=== PATIENT | female | born 1980 | race Caucasian/White ===

== ENCOUNTER → 2017-07-05 | Day surgery (SDC) | payer OTHER ==
[~2017-07-05] VITALS: Ht 165.1 cm; Wt 86.8 kg
[~2017-07-05] MED LIST: ACETAMINOPHEN 1000 MG/100 ML 100 ML IV ONE; CHLORHEXIDINE GLUCONATE 2 % 1 PACK (2 CLOTHS) TOPICAL PRN; DEXAMETHASONE SOD PHOS 4 MG/ML VIAL IV ONE; KETOROLAC TROMETHAMINE 30 MG/ML (IVP) VIAL IV PUSH ONE; KETOROLAC TROMETHAMINE 30 MG/ML (IVP) VIAL ONE; LACTATED RINGER'S 1000 ML INJ 1,000 ML IV ONE; LACTATED RINGER'S 1000 ML IV PRN; LIDOCAINE HCL 1% PF 5 ML SYRINGE OTHER ONE; METOPROLOL TARTRATE 25 MG TAB PO PRN; MIDAZOLAM HCL 2 MG/2 ML VIAL ONE; MORPHINE SULFATE 4 MG/ML INJ ONE; ONCETAB7 PO; ONDANSETRON HCL 4 MG/2 ML VIAL IV ONE; OXYTOCIN 10 UNIT/ML AMP ONE; PERC5TAB12 PO; POVIDONE IODINE 5% (ANTISEPSIS KIT) 4 APPLICATIONS EACH NARE PRN; PROPOFOL 200 MG/20 ML AMP IV ONE; SODIUM CHLORID 0.9% 500 ML IV PRN; oxyCODONE/ACETAMINOPHEN 5 MG/325 MG TAB PO PRN
[2017-07-05 11:43] LABS: AUTOMATED NEUTROPHIL # 5.7 TH/MM3 (1.8-7.7); BASOPHIL % 0.2 % (0.0-2.0); EOSINOPHIL # 0.3 TH/MM3 (0-0.4); EOSINOPHIL % 2.9 % (0.0-4.0); HEMATOCRIT 35.7 % (35.0-46.0); HEMOGLOBIN 12.4 GM/DL (11.6-15.3); LYMPH % 28.5 % (9.0-44.0); LYMPHOCYTE # 2.6 TH/MM3 (1.0-4.8); MEAN CELL VOLUME 97.1 FL (80.0-100.0); MEAN CORPUSCULAR HEMOGLOBIN 33.9 PG (27.0-34.0); MEAN CORPUSCULAR HGB CONC 34.9 % (32.0-36.0); MEAN PLATELET VOLUME 7.4 FL (7.0-11.0); MONO % 6.2 % (0.0-8.0); MONOCYTE # 0.6 TH/MM3 (0-0.9); NEUT % 62.2 % (16.0-70.0); PLATELET COUNT 247 TH/MM3 (150-450); RED BLOOD COUNT 3.68 MIL/MM3 (4.00-5.30); RED CELL DISTRIBUTION WIDTH 13.7 % (11.6-17.2); WHITE BLOOD COUNT 9.2 TH/MM3 (4.0-11.0)
--- NOTE | 2017-07-05 13:14 | PD.OP ---
Operative Report Date of Surgery: Jul 05, 2017 Preoperative Diagnosis: (1) Missed Postoperative Diagnosis: (1) Missed Procedure: D & C with suction curettage Anesthesia: General Surgeon: Jordan Woody Refrigerator Car Icer(s): Kg Amor MS3 Jordan Woody MD Jul 05, 2017 13:14
--- NOTE | 2017-07-05 13:41 | MP ---
cc: Jordan Woody MD DATE OF OPERATION: 07/05/2017 PROCEDURE: Dilatation and curettage with suction curette. PREOPERATIVE DIAGNOSIS: Missed . POSTOPERATIVE DIAGNOSIS: Missed . SURGEON: Jordan Woody MD KNURLING MACHINE TENDER: Kg Amor MS3 COMPLICATIONS: None. FINDINGS: Products of conception. A 12-weeks' sized uterus. ANESTHESIA: General, Dr. Rojo. PROCEDURE IN DETAIL: After informed consent, the patient was taken to the operating room where she was placed in supine position, legs in candy cane stirrups. The abdomen, perineum and vagina were prepped and draped in normal sterile fashion. After adequate anesthesia was assured and time-out was taken, a speculum was placed in the vagina, the cervix grasped with a single-tooth tenaculum. The cervix was easily dilated to accommodate and 8-mm suction curette. The uterus had been sounded to 12 cm. Suction curette was passed to the fundus. All products of conception were evacuated. Sharp curette was passed in all four quadrants but anteriorly it took some curetting to clean out all the products of conception. Suction curette was passed one last time. There were no remaining products of conception. All four quadrants were noted to be gritty and the procedure was ended. All instruments were removed, the single-tooth tenaculum was removed. Pressure was applied to the cervix until the tenaculum spot site stopped bleeding. The patient tolerated the procedure well. She was awakened and taken to the recovery room in stable condition. Lap and instrument counts were noted as correct. MD NELLI Ulrich/CARLOS ALBERTO , 01:14 PM , 01:39 PM
[2017-07-05 13:45] VITALS: TEMP 98.4
[2017-07-05 14:25] VITALS: BP 110/68; PULSE 69; RESP 16; O2SAT 100
== END | disposition home or self-care (01) ==
LOC: HSDC 10:24
PROVIDERS: ATTEND Obstetrics & Gynecology
DX: O02.1 Missed abortion (principal)
CPT/HCPCS: 01965; 59820; 85025; 86900; 86901; 88305; J0131; J1100; J1885; J2250; J2270; J2405; J2590; J7120